=== PATIENT | female | born 1975 | race Caucasian/White ===

== ENCOUNTER 2017-01-26 22:03 | Emergency (ER) | payer OTHER ==
[~2017-01-26] VITALS: Ht 157.5 cm; Wt 58.9 kg
[2017-01-26 22:17] VITALS: Ht 157.5 cm; Wt 58.9 kg
[2017-01-26] MEDS ORDERED: SOD CHLORIDE 0.9% 500 ML IV STA (22:25)
[2017-01-26] MEDS ORDERED: KETOROLAC 15 MG INJ IV STA (22:25)
[2017-01-26] MEDS ORDERED: LIDOCAINE/MYLANTA 40 ML BTL PO STA (22:25)
[2017-01-26] MEDS ORDERED: BELLADONNA/PHENOBARBITAL TAB PO STA (22:25)
[2017-01-26] MEDS ORDERED: FAMO40TA52 PO (22:26)
[2017-01-26] MEDS ORDERED: MAG355OR14 PO (22:26)
[2017-01-26 22:30] VITALS: BP 112/62; PULSE 62; RESP 20; TEMP 98.4
[2017-01-26] MEDS ORDERED: ALPRAZOLAM 0.25 MG TAB PO ONE (22:30)
[2017-01-26 22:58] LABS: ADD SCAN DIFF NO
[2017-01-26 23:12] LABS: BASOPHILS % 0.3 % (0.0-2.0); EOSINOPHILS # 0.1 10^3/ul (0.0-0.5); EOSINOPHILS % 2.1 % (0.0-7.0); HEMATOCRIT 30.5 % (37.0-47.0); HEMOGLOBIN 9.8 g/dl (12.0-16.0); LYMPHOCYTES # 1.9 10^3/ul (0.8-2.9); LYMPHOCYTES % 32.3 % (15.0-51.0); MEAN CORPUSCULAR HEMOGLOBIN 27.3 pg (29.0-33.0); MEAN CORPUSCULAR HGB CONC 32.1 g/dl (32.0-37.0); MEAN PLATELET VOLUME 9.4 fl (7.4-10.4); MONOCYTE # 0.4 10^3/ul (0.3-0.9); MONOCYTES % 7.7 % (0.0-11.0); NEUTROPHIL # 3.3 10^3/ul (1.6-7.5); NEUTROPHILS % 57.4 % (39.0-77.0); PLATELET COUNT 299 10^3/UL (140-415); RED BLOOD COUNT 3.59 10^6/ul (4.20-5.40); WHITE BLOOD COUNT 5.8 10^3/ul (4.8-10.8)
[2017-01-26] MEDS ORDERED: NORTREL PO (23:13)
[2017-01-26 23:27] LABS: ALBUMIN 4.4 g/dl (3.3-4.9); CHLORIDE 102 mmol/L (97-110); SODIUM 143 mmol/L (135-144)
[2017-01-26 23:28] LABS: POTASSIUM 3.7 mmol/L (3.5-5.1)
[2017-01-26 23:30] LABS: ALANINE AMINOTRANSFERASE 26 IU/L (13-69); ALBUMIN/GLOBULIN RATIO 1.22; ALKALINE PHOSPHATASE 66 IU/L (42-121); ANION GAP 18 (8-16); ASPARTATE AMINO TRANSFERASE 24 IU/L (15-46); BILIRUBIN,INDIRECT 0.1 mg/dl (0-1.1); BILIRUBIN,TOTAL 0.1 mg/dl (0.2-1.3); BLOOD UREA NITROGEN 7 mg/dl (7-20); CARBON DIOXIDE 27 mmol/L (21-31); CREATININE 0.59 mg/dl (0.44-1.00); GLUCOSE 99 mg/dl (70-220)
[2017-01-26 23:31] LABS: CALCIUM 9.1 mg/dl (8.4-10.2)
[2017-01-26 23:37] LABS: TROPONIN-I < 0.012 ng/ml (0.00-0.12)
--- NOTE | 2017-01-26 23:44 | ERD ---
ER Documentation Chief Complaint Date/Time DATE: 01/26/17 TIME: 23:39 Chief Complaint chest pain HPI 41-year-old woman brought in by EMS for sharp nonexertional nonradiating chest pain beginning at home at rest. She states she has had similar episodes in the past. She describes a burning sensation to the chest as well as the epigastrium. She denies calf or leg swelling, no vomiting or diarrhea, no headache or blurry vision, no suicidal ideation or depression. Patient transported here by EMS without further complications. ROS All systems reviewed and are negative except as per history of present illness. Medications Home Meds Active Scripts Famotidine* (Famotidine*) 40 Mg Tablet, 40 MG PO HS, #30 TAB Prov:WILL DUDLEY MD 01/26/17 Mag Hydrox/Al Hydrox/Simeth (Maalox Advanced Suspension) 355 Ml Oral.susp, 2 TSP PO TID for PAIN, #24 OZ Prov:WILL DUDLEY MD 01/26/17 Reported Medications Estradiol-Norethindrone Acetate (Nortrel) 0.035-1 Mg Tablet, 1 TAB PO DAILY, TAB 01/26/17 Allergies Allergies: Coded Allergies: No Known Allergy (Unverified , 01/26/17) PMhx/Soc Anxiety History of Surgery: No Anesthesia Reaction: No Hx Neurological Disorder: No Hx Respiratory Disorders: No Hx Cardiac Disorders: No Hx Psychiatric Problems: No Hx Miscellaneous Medical Probl: Yes (pt had several miscarriages) Hx Alcohol Use: No Hx Substance Use: No Hx Tobacco Use: No Smoking Status: Never smoker FmHx Family History: No diabetes Physical Exam Vitals Vital Signs Date Time Temp Pulse Resp B/P Pulse Ox O2 Delivery O2 Flow Rate FiO2 01/26/17 22:30 98.4 62 20 112/62 98 Room Air 01/26/17 22:17 98.6 74 12 115/99 100 Physical Exam GENERAL: Well-developed, well-nourished, well-hydrated, in no apparent distress , looks nontoxic in appearance HEENT: Moist mucous membranes, pink conjunctiva, no cervical spine tenderness or step-off deformities, no goiter, no jaundice or icterus, extraocular movements intact without pain. No submandibular induration, and no pharyngeal erythema NEURO: Alert and oriented 3, cranial nerves II through XII intact bilaterally, pupils equal round reactive to light, no focal deficits or facial asymmetry, sensation intact distally Strength 5/5 in upper and lower extremities bilaterally CARDIAC: Regular rate and rhythm, no murmurs rubs or gallops LUNGS: Clear bilaterally no wheezing crackles or stridor ABDOMEN: Soft nontender, no guarding, no rigidity, no rebound, no psoas sign no obturator sign. Normoactive bowel sounds SKIN: Warm and dry to touch, no abrasions, contusions, or hematomas, no lacerations, no ecchymosis, no target lesions, and without ulcers EXTREMITIES: No clubbing cyanosis or edema, calves are bilaterally symmetrical, no Homans sign, no popliteal cord sign. Distal pulses equal and bilateral PSYCH: Normal affect without agitation or irritability Result Diagram: 01/26/17223901/26/172239 Results 24 hrs Laboratory Tests Test 01/26/17 22:40 White Blood Count 5.810^3/ul Red Blood Count 3.5910^6/ul Hemoglobin 9.8g/dl Hematocrit 30.5% Mean Corpuscular Volume 85.0fl Mean Corpuscular Hemoglobin 27.3pg Mean Corpuscular Hemoglobin Concent 32.1g/dl Red Cell Distribution Width 13.0% Platelet Count 16238^3/UL Mean Platelet Volume 9.4fl Neutrophils % 57.4% Lymphocytes % 32.3% Monocytes % 7.7% Eosinophils % 2.1% Basophils % 0.3% Nucleated Red Blood Cells % 0.0/100WBC Neutrophils # 3.310^3/ul Lymphocytes # 1.910^3/ul Monocytes # 0.410^3/ul Eosinophils # 0.110^3/ul Basophils # 0.010^3/ul Nucleated Red Blood Cells # 0.010^3/ul Sodium Level 143mmol/L Potassium Level 3.7mmol/L Chloride Level 102mmol/L Carbon Dioxide Level 27mmol/L Anion Gap 18 Blood Urea Nitrogen 7mg/dl Creatinine 0.59mg/dl Glucose Level 99mg/dl Calcium Level 9.1mg/dl Total Bilirubin 0.1mg/dl Direct Bilirubin 0.00mg/dl Indirect Bilirubin 0.1mg/dl Aspartate Amino Transf (AST/SGOT) 24IU/L Alanine Aminotransferase (ALT/SGPT) 26IU/L Alkaline Phosphatase 66IU/L Troponin I < 0.012ng/ml Total Protein 8.0g/dl Albumin 4.4g/dl Globulin 3.60g/dl Albumin/Globulin Ratio 1.22 Lipase 95U/L Current Medications Medications (Trade) Dose Ordered Sig/Domenico Route PRN Reason Start Time Stop Time Status Last Admin Dose Admin Sodium Chloride (NS) 500 ml @ 500 mls/hr Q1H STAT IV 01/26/17 22:25 01/26/17 23:24 DC 01/26/17 22:53 Miscellaneous Medication (Gi Cocktail (2)) 40 ml ONCE STAT PO 01/26/17 22:25 01/26/17 22:26 DC 01/26/17 22:53 Belladonna/ Phenobarbital () 2 tab ONCE STAT PO 01/26/17 22:25 01/26/17 22:26 DC 01/26/17 22:53 Ketorolac Tromethamine (Toradol) 15 mg ONCE STAT IV 01/26/17 22:25 01/26/17 22:26 DC 01/26/17 22:53 Alprazolam (Xanax) 0.5 mg ONCE ONCE PO 01/26/17 22:30 01/26/17 22:31 DC 01/26/17 22:53 Procedures/MDM IV line was established patient was placed on quality assurance monitor body rhythm strip revealed a sinus rhythm at about 70 bpm with upright P and T waves. Patient was afebrile. EKG performed, read by me: 70 bpm, normal sinus rhythm, normal axis, no acute ST segment changes, narrow QRS complex, with good R-wave progression in precordial leads. One AP view of the chest performed, read by me reveals no acute infiltrates, normal mediastinum, sharp costophrenic and cardiac borders, no air under the diaphragm. Otherwise unremarkable chest x-ray. Patient received 500 cc of normal saline intravenously, Toradol 15 mg IV, GI cocktail 50 cc p.o., and alprazolam 0.5 mg p.o. with good response. CBC revealed mild anemia, electrolytes normal, troponin negative, liver function tests normal. Differential diagnoses considered, included but not limited to acute coronary syndrome, pulmonary embolism, aortic dissection, abdominal aortic aneurysm, sepsis, stroke, meningitis, encephalitis, pneumonia, appendicitis, cholecystitis , bowel obstruction, pyelonephritis, nephrolithiasis, cystitis, as well as metabolic, hematologic, and electrolyte abnormalities. As well as abscess, cellulitis, fractures, and dislocations. Patient feels much better at this time, and vital signs are normal, symptoms have improved. I did give strict instructions to return to the ED if symptoms continue or worsen, patient will otherwise follow-up with primary care physician. Patient understood instructions and agreed to plan. Departure Diagnosis: Primary Impression: Chest pain Chest pain type: unspecified Qualified Code: R07.9 - Chest pain, unspecified type Condition: Good Patient Instructions: Chest Pain, Uncertain Cause WILL DUDLEY MD Jan 26, 2017 23:44
--- NOTE | 2017-01-27 00:38 | RADRPT ---
PROCEDURE: CHEST - 1 VIEW CLINICAL INDICATION: 41-year-old female with shortness of breath. TECHNIQUE: A single frontal AP supine portable view of the chest was performed. The images were r eviewed on a PACS workstation. COMPARISON: None. FINDINGS: The cardiomediastinal silhouette has a normal appearance. There is no evidence for an infiltrate. There is no evidence for congestive heart failure. There is no evidence for pneumothorax. The osseou s structures are intact. IMPRESSION: No evidence for active cardiopulmonary disease. .Cory Galdamez MD, MD Date Time Electronically viewed and signed by .Cory Galdamez MD, on 01/27/2017 00:37 .M/
== END 2017-01-27 00:26 | disposition home or self-care (01) ==
LOC: E/R 22:03
DX: R07.9 Chest pain, unspecified (principal)
CPT/HCPCS: 71010; 80053; 83690; 84484; 85025; 93005; J1885; J7040; Z7610; 36415; 96374